=== PATIENT | female | born 1990 | race Caucasian/White ===

== ENCOUNTER 2017-06-14 16:09 | Emergency (ER) | payer SELFPAY ==
[~2017-06-14] VITALS: Ht 175.3 cm; Wt 63.5 kg
[2017-06-14 16:33] VITALS: BP_SYST 116
[2017-06-14 17:51] LABS: BILIRUBIN,URINE NEGATIVE (NEGATIVE); BLOOD, URINE NEGATIVE (NEGATIVE); CLARITY/URINE SL HAZY (CLEAR); COLOR,URINE YELLOW (YELLOW); GLUCOSE,URINE NEGATIVE (NEGATIVE); KETONES,URINE NEGATIVE (NEGATIVE); LEUKOCYTE ESTERASE ,URINE NEGATIVE (NEGATIVE); NITRITE, URINE NEGATIVE (NEGATIVE); PROTEIN URINE NEGATIVE (NEGATIVE); UROBILINOGEN,URINE 0.2 (0.2-1.0)
[2017-06-14 18:30] LABS: HEMATOCRIT 46.7 % (36-48); HEMOGLOBIN 15.4 g/dL (12.0-16.0); MEAN CORPUSCULAR HEMOGLOBIN 30 pg (27-31); MEAN CORPUSCULAR HGB CONC 33 % (32-36); MEAN CORPUSCULAR VOLUME 93 fL (79.0-98.0); PLATELET COUNT (AUTO) 152 K/uL (130-430); RED BLOOD CELL COUNT(AUTO) 5.05 MIL/uL (4.2-6.2); RED CELL DISTRIBUTION WIDTH 12.7 % (9.0-15.0); WHITE BLOOD COUNT (AUTO) 10.4 K/uL (4.8-10.8)
[2017-06-14 18:43] LABS: CREATININE 0.39 mg/dL (0.55-1.30); POTASSIUM 3.4 mmol/L (3.5-5.1)
[2017-06-14 18:45] LABS: PROTHROMBIN TIME 10.5 SECS (9.5-12.5)
[2017-06-14 19:10] LABS: ALBUMIN 3.5 g/dL (3.4-4.8); TOTAL BILIRUBIN 0.2 mg/dL (0.0-1.0)
[2017-06-14 19:20] LABS: BASOPHILS % (MANUAL) 0 % (0-2); EOSINOPHILS % (MANUAL) 2 % (0-7); LYMPHOCYTES % (MANUAL) 28 % (20-46); MONOCYTES % (MANUAL) 10 % (0-11)
[2017-06-15] MEDS ORDERED: RHO(D) IMMUNE GLOBULIN/MALTOSE 1500 UNITS/1.3 ML (WINHRO) INJ ONE (00:30)
[2017-06-15 02:05] VITALS: BP_SYST 117
== END 2017-06-15 02:05 | disposition home or self-care (01) ==
LOC: SED 16:09
DX: O20.0 Threatened abortion (principal); Z3A.08 8 weeks gestation of pregnancy
CPT/HCPCS: 36415; 76801; 76817; 80053; 81003; 81025; 84702; 85007; 85027; 85610; 85730; 86900; 86901; 96372; 99285; J2792